=== PATIENT | male | born 1985 | race Caucasian/White ===

== ENCOUNTER 2020-02-13 05:18 | Emergency (ER) | payer BC ==
[2020-02-13 05:22] VITALS: BP 146/81; PULSE 74
[2020-02-13] MEDS ORDERED: Alum Hydrox/Mag Hydrox/Simeth 30 ML, Lidocaine 2% 15 ML PO ONE ×2 (06:02)
--- NOTE | 2020-02-13 06:08 | EDM.PDOC ---
ED HPI GENERAL MEDICAL PROBLEM - General Chief Complaint: Abdominal Pain Stated Complaint: epigastric pain, belching Time Seen by Provider: 02/13/20 05:30 Source of Information: Reports: Patient History Limitations: Reports: No Limitations - History of Present Illness INITIAL COMMENTS - FREE TEXT/NARRATIVE: in with c/o epigastric abd pain with NV, had tacos and chips with salsa as well as a couple mixed drinks last night before going to bed. Denies any ear, nose, throat symptoms denies any unusual neck, back pain or stiffness denies any chest pain or shortness of breath denies any black or tarry stools denies any blood in the vomit no coffee-ground material no fever chills no other symptoms Onset: Today Onset Date: 02/13/20 Onset Time: 03:30 Duration: Hour(s): Location: Reports: Abdomen Quality: Reports: Ache Severity: Moderate Improves with: Reports: None Worsens with: Reports: Eating Associated Symptoms: Reports: Nausea/Vomiting. Denies: Chest Pain, Cough, Fever /Chills, Loss of Appetite, Shortness of Breath, Weakness Treatments TRAFFIC CONTROL SUPERVISOR: Reports: Other (see below) (none) Upper Abdomen Pain Score (Numeric/FACES): 5 - Related Data Allergies Allergy/AdvReac Type Severity Reaction Status Date / Time penicillin Allergy Cannot Verified 07/05/15 19:13 Remember Home Meds: Home Meds Lisinopril/Hydrochlorothiazide [Lisinopril-Hctz 20-12.5 mg Tab] 1 tab PO DAILY 02/13/20 [History] Meloxicam 7.5 mg PO DAILY 02/13/20 [History] Omeprazole Magnesium [Prilosec Otc] 20 mg PO DAILY 30 Days #30 tablet. [Rx] Past Medical History Cardiovascular History: Reports: Hypertension Other Musculoskeletal History: left knee injury Social & Family History - Family History Family Medical History: Noncontributory - Tobacco Use Smoking Status *Q: Never Smoker - Alcohol Use Days Per Week of Alcohol Use: 4 Number of Drinks Per Day: 3 Total Drinks Per Week: 12 - Recreational Drug Use Recreational Drug Use: No ED ROS GENERAL - Review of Systems Review Of Systems: See Below Constitutional: Reports: No Symptoms. Denies: Fever, Chills HEENT: Reports: No Symptoms. Denies: Ear Pain, Nose Pain, Throat Pain Respiratory: Reports: No Symptoms. Denies: Shortness of Breath Cardiovascular: Reports: No Symptoms. Denies: Chest Pain GI/Abdominal: Reports: Abdominal Pain, Nausea, Vomiting. Denies: Constipation, Diarrhea, Distension Musculoskeletal: Reports: No Symptoms. Denies: Neck Pain Skin: Reports: No Symptoms Neurological: Reports: No Symptoms ED EXAM, GI/ABD - Physical Exam Exam: See Below Exam Limited By: No Limitations General Appearance: Alert, WD/WN, No Apparent Distress, Obese Ears: Normal External Exam Nose: Normal Inspection Throat/Mouth: Normal Inspection, Normal Lips, Normal Voice, No Airway Compromise Head: Atraumatic, Normocephalic Neck: Normal Inspection, Supple, Non-Tender, Full Range of Motion Respiratory/Chest: No Respiratory Distress, Lungs Clear, Normal Breath Sounds, Chest Non-Tender Cardiovascular: Normal Peripheral Pulses, Regular Rate, Rhythm, No Murmur GI/Abdominal Exam: Normal Bowel Sounds, Soft, No Distention, Tender (epigastric tenderness) Back Exam: Normal Inspection, Full Range of Motion Extremities: Normal Inspection, Normal Range of Motion, Non-Tender, Normal Capillary Refill Neurological: Alert, Oriented, Normal Cognition, Normal Gait, No Motor/Sensory Deficits Psychiatric: Normal Affect, Normal Mood Skin Exam: Warm, Dry, Intact, Normal Color Course - Vital Signs Text/Narrative:: The patient was evaluated in the emergency department CBC and general chemistries as well as liver function test, amylase, lipase are normal. The patient was given a GI cocktail which completely relieved his symptoms. The patient will be discharged with omeprazole 20 mg once a day and advised no spicy or greasy foods no alcohol until okayed by his physician. Last Recorded V/S: Last Vital Signs Temp 36.7 C 02/13/20 05:19 Pulse 74 02/13/20 05:19 Resp 18 02/13/20 05:19 BP 146/81 H 02/13/20 05:19 Pulse Ox 100 02/13/20 05:19 - Orders/Labs/Meds Labs: Laboratory Tests 02/13/20 02/13/20 Range/Units 05:46 05:46 WBC 5.8 (5.0-10.0) 10^3/uL RBC 5.30 (4.50-6.00) 10^6/uL Hgb 15.2 (14.0-18.0) g/dL Hct 44.1 (40.0-54.0) % MCV 83.2 (82.0-94.0) fL MCH 28.7 (27.0-32.0) pg MCHC 34.5 (33.0-38.0) g/dL RDW Coeff of Leonidas 13.7 (11.0-15.0) % Plt Count 140 L (150-400) 10^3/uL Neut % (Auto) 73.7 (35-85) % Lymph % (Auto) 10.6 (10-55) % [place] % (Auto) 14.4 (0-16) % Eos % (Auto) 1.0 (0-5) % Baso % (Auto) 0.3 (0-3) % Neut # (Auto) 4.30 (1.80-7.00) 10^3/uL Lymph # (Auto) 0.62 L (1.00-4.80) 10^3/uL [place] # (Auto) 0.84 H (0.00-0.80) 10^3/uL Eos # (Auto) 0.06 (0.00-0.45) 10^3/uL Baso # (Auto) 0.02 10^3/uL Sodium 137 (136-145) mEq/L Potassium 4.0 (3.5-5.0) mEq/L Chloride 100 (98-106) mEq/L Carbon Dioxide 26 (21-32) mmol/L BUN 14 (7-18) mg/dL Creatinine 1.0 (0.7-1.3) mg/dL Est Cr Clr Drug Dosing 123.30 mL/min Estimated GFR (MDRD) > 60 (>=60) mL/min Glucose 117 H (75-99) mg/dL Calcium 8.6 (8.4-10.1) mg/dL Total Bilirubin 0.6 (0.0-1.0) mg/dL AST 24 (15-37) U/L ALT 65 (12-78) U/L Alkaline Phosphatase 64 (46-116) U/L C-Reactive Protein 0.4 (0.2-0.8) mg/dL Total Protein 6.9 (6.4-8.2) g/dL Albumin 3.9 (3.4-5.0) g/dL Amylase 61 (25-115) U/L Lipase 121 (73-393) U/L Meds: Medications Discontinued Medications Generic Name Dose Route Start Last Admin Trade Name Lucian PRN Reason Stop Dose Admin Al Hydroxide/Mg Hydroxide 30 0 ml 02/13/20 06:02 02/13/20 06:06 ml/ Lidocaine HCl 15 ml PO 02/13/20 06:03 30 ml ONETIME ONE Administration Departure - Departure Time of Disposition: 06:40 Disposition: Home, Self-Care 01 Condition: Good Clinical Impression: GERD (gastroesophageal reflux disease) - Discharge Information *PRESCRIPTION DRUG MONITORING PROGRAM REVIEWED*: Not Applicable *COPY OF PRESCRIPTION DRUG MONITORING REPORT IN PATIENT TOYR: Not Applicable Prescriptions: Omeprazole Magnesium [Prilosec Otc] 20 mg PO DAILY 30 Days #30 tablet. Instructions: Gastroesophageal Reflux Disease, Adult, [id number] Referrals: Reymundo Holland PA-C [Primary Care Provider] - Forms: ED Department Discharge Additional Instructions: Increase fluids No spicy or greasy foods, no alcohol until okayed by your doctor Sheridan diet Follow-up with your family doctor in 1 to 2 weeks Return to emergency department sooner if worse or any problems Sepsis Event Note - Evaluation Sepsis Screening Result: No Definite Risk - Focused Exam Vital Signs: Vital Signs Temp Pulse Resp BP Pulse Ox 02/13/20 05:19 36.7 C 74 18 146/81 H 100 Date Exam was Performed: 02/13/20 Time Exam was Performed: 06:36 - Problem List & Annotations (1) GERD (gastroesophageal reflux disease) SNOMED Code(s): 381757797 Code(s): K21.9 - GASTRO-ESOPHAGEAL REFLUX DISEASE WITHOUT ESOPHAGITIS Status: Acute Priority: Medium Current Visit: Yes - Problem List Review Problem List Initiated/Reviewed/Updated: Yes - Assessment/Plan Plan: As above
[2020-02-13 06:23] LABS: CHLORIDE,CL 100 mEq/L (98-106); SODIUM,NA 137 mEq/L (136-145)
== END 2020-02-13 06:48 | disposition home or self-care (01) ==
LOC: CC.ED 05:18
DX: K21.9 Gastro-esophageal reflux disease without esophagitis (principal); I10 Essential (primary) hypertension; Z88.0 Allergy status to penicillin; Z79.899 Other long term (current) drug therapy
CPT/HCPCS: 36415; 80053; 82150; 83690; 85025; 86140; 99284; A9270-GY

== ENCOUNTER 2021-08-02 03:28 | Emergency (ER) | payer BC ==
[2021-08-02 03:33] VITALS: BP 141/85; PULSE 88
[2021-08-02] MEDS ORDERED: Alum Hydrox/Mag Hydrox/Simeth 30 ML, Lidocaine 2% 15 ML PO ONE ×2 (03:35)
[2021-08-02] MEDS ORDERED: fentaNYL 50 MCG/ML SDV IVPUSH ONE (04:02)
[2021-08-02 04:06] LABS: CHLORIDE,CL 103 mEq/L (98-106); SODIUM,NA 139 mEq/L (136-145)
[2021-08-02] MEDS ORDERED: Sodium Chloride 0.9% 1,000 ML IV ONE (04:09)
--- NOTE | 2021-08-02 04:16 | EDM.PDOC ---
<AmaliaDaria Savage - Last Filed: 08/02/21 11:15> ED HPI GENERAL MEDICAL PROBLEM - General Chief Complaint: Gastrointestinal Problem Stated Complaint: stomach pain Time Seen by Provider: 08/02/21 03:52 - Related Data Allergies Allergy/AdvReac Type Severity Reaction Status Date / Time penicillin Allergy Cannot Verified 08/02/21 03:33 Remember Home Meds: Home Meds Lisinopril/Hydrochlorothiazide [Lisinopril-Hctz 20-12.5 mg Tab] 1 tab PO DAILY 02/13/20 [History] Meloxicam 7.5 mg PO DAILY PRN 02/13/20 [History] Pantoprazole 20 mg PO DAILY 08/02/21 [History] Course - Re-Assessments/Exams Free Text/Narrative Re-Assessment/Exam: 08/02/21 11:16 test results of the GB US was reviewed with the pt. He will be discharged with follow up appt with Dr. Orozco. Will give [place] for pain as needed. Departure - Departure Time of Disposition: 11:17 Disposition: Home, Self-Care 01 Condition: Good Clinical Impression: Cholelithiasis without obstruction - Discharge Information *PRESCRIPTION DRUG MONITORING PROGRAM REVIEWED*: Not Applicable *COPY OF PRESCRIPTION DRUG MONITORING REPORT IN PATIENT TORY: Not Applicable Instructions: Cholelithiasis, [id number] Referrals: Reymundo Holland PA-C [Primary Care Provider] - Forms: ED Department Discharge Additional Instructions: Appt with Dr. Orozco Aug 15 at 9:45 AM in the clinic watch diet as directed eating low fat [place] 5/325 as needed for pain every 6 hours. call clinic if any new concerns. - Problem List & Annotations (1) Cholelithiasis without obstruction SNOMED Code(s): 77582859 Code(s): K80.20 - CALCULUS OF GALLBLADDER W/O CHOLECYSTITIS W/O OBSTRUCTION Status: Acute Priority: High - Problem List Review Problem List Initiated/Reviewed/Updated: Yes <Shahana Sanabria - Last Filed: 08/03/21 18:45> ED HPI GENERAL MEDICAL PROBLEM - General Source of Information: Reports: Patient History Limitations: Reports: No Limitations - History of Present Illness INITIAL COMMENTS - FREE TEXT/NARRATIVE: Christopher lira a 35 year old male who presents to the ER with complaints of midepigastric/upper quadrant abdominal pain. States started around midnight tonight and has been intense since. Did vomit one time after a coughing spell, did not relieve the pain. Had buffalo chicken pizza earlier this evening. No nausea at present. No fevers. Denies diarrhea or constipation. Had a BM an hour prior to coming here, did not relieve the pain. No flank pain, suprapubic discomfort or burning with urination. No hematuria. States urine was dark but that is not unusual for him. Did try pepto bismal at home without relief. Is on Protonix daily. Had bout of discomfort one year ago, states was more of a burning sensation at that time. Had a GI cocktail with relief. Onset: Today, Sudden Duration: Hour(s):, Constant Location: Reports: Abdomen Quality: Reports: Ache Severity: Severe Improves with: Reports: None Associated Symptoms: Reports: Nausea/Vomiting. Denies: Confusion, Chest Pain, Cough, Fever/Chills, Loss of Appetite, Shortness of Breath Treatments CORE WINDER: Reports: Acetaminophen Abdomen Pain Score (Numeric/FACES): 8 Past Medical History Cardiovascular History: Reports: Hypertension Other Musculoskeletal History: left knee injury Social & Family History - Family History Family Medical History: No Pertinent Family History - Tobacco Use Tobacco Use Status *Q: Never Tobacco User - Caffeine Use Caffeine Use: Reports: Coffee - Recreational Drug Use Recreational Drug Use: No ED ROS GENERAL - Review of Systems Review Of Systems: See Below Constitutional: Denies: Fever, Chills, Malaise, Weakness, Decreased Appetite HEENT: Denies: Ear Pain, Rhinitis, Sinus Problem, Throat Pain Respiratory: Denies: Shortness of Breath, Cough Cardiovascular: Denies: Chest Pain, Edema, Lightheadedness Endocrine: Denies: Fatigue GI/Abdominal: Reports: Abdominal Pain, Nausea, Vomiting. Denies: Black Stool, Bloody Stool, Constipation, Diarrhea : Denies: Dysuria, Flank Pain, Frequency Musculoskeletal: Reports: No Symptoms Skin: Reports: No Symptoms Neurological: Reports: No Symptoms ED EXAM, GI/ABD - Physical Exam Exam: See Below Exam Limited By: No Limitations General Appearance: Alert, WD/WN, Mild Distress Ears: Normal External Exam, Normal TMs Nose: Normal Inspection, Normal Mucosa, No Blood Throat/Mouth: Normal Inspection, Normal Oropharynx Head: Normocephalic Neck: Normal Inspection, Supple, Non-Tender Respiratory/Chest: No Respiratory Distress, Lungs Clear, Normal Breath Sounds Cardiovascular: Regular Rate, Rhythm GI/Abdominal Exam: Normal Bowel Sounds, Soft, Tender (tender to midepigastric area and bilateral upper quadrants) Extremities: Normal Inspection, No Pedal Edema Neurological: Alert, Oriented Skin Exam: Warm, Dry Course - Vital Signs Last Recorded V/S: Last Vital Signs Temp 96.1 F L 08/02/21 03:29 Pulse 88 08/02/21 03:29 Resp 18 08/02/21 03:29 BP 141/85 H 08/02/21 03:29 Pulse Ox 99 08/02/21 03:29 - Orders/Labs/Meds Labs: Laboratory Tests 08/02/21 08/02/21 08/02/21 Range/Units 03:40 03:45 03:45 WBC 6.8 (4.0-11.0) 10^3/uL RBC 5.37 (4.50-6.00) x10^6/uL Hgb 15.5 (14.0-18.0) g/dL Hct 44.6 (42.0-52.0) % MCV 83.1 (83.0-97.0) fL MCH 28.9 (27.0-32.0) pg MCHC 34.8 (32.0-36.0) g/dL RDW Coeff of Leonidas 13.1 (11.0-15.0) % Plt Count 162 (150-400) 10^3/uL Immature Gran % (Auto) 0.1 (0.0-4.9) % Neut % (Auto) 73.3 H (41-71) % Lymph % (Auto) 15.2 L (24-44) % [place] % (Auto) 9.9 (0-10) % Eos % (Auto) 0.9 (0-6) % Baso % (Auto) 0.6 (0-1) % Neut # (Auto) 4.97 (1.80-8.00) x10^3/uL Lymph # (Auto) 1.03 (0.60-5.00) 10^3/uL [place] # (Auto) 0.67 (0.00-1.50) 10^3/uL Eos # (Auto) 0.06 (0.00-1.50) 10^3/uL Baso # (Auto) 0.04 (0.00-0.50) 10^3/uL Immature Gran # (Auto) 0.01 (0.00-0.49) 10^3/uL Sodium 139 (136-145) mEq/L Potassium 3.7 (3.5-5.0) mEq/L Chloride 103 (98-106) mEq/L Carbon Dioxide 25 (21-32) mmol/L BUN 18 (7-18) mg/dL Creatinine 0.9 (0.7-1.3) mg/dL Est Cr Clr Drug Dosing 139.53 mL/min Estimated GFR (MDRD) > 60 (>=60) mL/min Glucose 140 H D (75-99) mg/dL Calcium 9.1 (8.4-10.1) mg/dL Total Bilirubin 0.6 (0.0-1.0) mg/dL AST 25 (15-37) U/L ALT 75 (12-78) U/L Alkaline Phosphatase 75 (46-116) U/L C-Reactive Protein < 0.2 L (0.2-0.8) mg/dL Total Protein 7.4 (6.4-8.2) g/dL Albumin 4.3 (3.4-5.0) g/dL Amylase 69 (25-115) U/L Lipase 143 (73-393) U/L Urine Color Ruby (YELLOW) Urine Appearance Clear (CLEAR) Urine pH 5.5 (4.5-8.0) Ur Specific [place] >= 1.030 H (1.003-1.020) Urine Protein Negative (NEGATIVE) mg/dL Urine Glucose (UA) Negative (NEGATIVE) mg/dL Urine Ketones Negative (NEGATIVE) mg/dL Urine Occult Blood Moderate H (NEGATIVE) Urine Nitrite Negative (NEGATIVE) Urine Bilirubin Negative (NEGATIVE) Urine Urobilinogen 0.2 (0.2-1.0) EU/dL Ur Leukocyte Esterase Negative (NEGATIVE) Urine RBC 0-5 (0-5) /HPF Urine WBC 0-5 (0-5) /HPF Calcium Oxalate Crystal Moderate H (NOT SEEN) /HPF Urine Mucus Few H (NOT SEEN) /HPF Meds: Medications Discontinued Medications Generic Name Dose Route Start Last Admin Trade Name Freq PRN Reason Stop Dose Admin Hydrocodone Bitart/Acetaminophen 1 tab 08/02/21 09:27 08/02/21 09:30 Acetaminophen/Hydrocodone 325-5 Mg Tab PO 08/02/21 09:28 1 tab ONETIME ONE Administration Al Hydroxide/Mg Hydroxide 30 0 ml 08/02/21 03:35 08/02/21 03:37 ml/ Lidocaine HCl 15 ml PO 08/02/21 03:36 45 ml ONETIME ONE Administration Fentanyl 25 mcg 08/02/21 04:02 08/02/21 04:05 Fentanyl 50 Mcg/Ml Sdv IVPUSH 08/02/21 04:03 25 mcg ONETIME ONE Administration Fentanyl 25 - 50 mcg 08/02/21 04:22 Fentanyl 50 Mcg/Ml Sdv IVPUSH Q2H PRN Pain Sodium Chloride 1,000 mls @ 999 mls/hr 08/02/21 04:09 08/02/21 04:11 Normal Saline IV 08/02/21 05:09 999 mls/hr .BOLUS ONE Administration - Re-Assessments/Exams Free Text/Narrative Re-Assessment/Exam: 08/02/21 04:20 patient had GI cocktail with no relief. labs all essentially unremarkable. Does have moderate amount of blood noted in urine, had blood in urine back in 2014 as well, 0-5 RBCs. No flank pain or groin pain to suggest kidney stone. Fentanyl given which did help some with the pain. Specific gravity greater than 1.030. Will start IV fluids. Obtain gallbladder US in am, pain control until accomplished 1010-Waiting on results of ultrasound. Patient states pain much improved. Tech did note gallstones. Patient aware. Want to ensure no signs of cholecystitis. Report given to Daria Holland. Sepsis Event Note (ED) - Evaluation Sepsis Screening Result: No Definite Risk
[2021-08-02] MEDS ORDERED: fentaNYL 50 MCG/ML SDV IVPUSH PRN (04:22)
[2021-08-02] MEDS ORDERED: Acetaminophen/HYDROcodone 325-5 MG Tab PO ONE (09:27)
== END 2021-08-02 11:20 | disposition home or self-care (01) ==
LOC: CC.ED 03:28
DX: K80.20 Calculus of gallbladder without cholecystitis without obstruction (principal); Z88.0 Allergy status to penicillin; Z79.899 Other long term (current) drug therapy
CPT/HCPCS: 36415; 76705; 80053; 81001; 82150; 83690; 85025; 86140; 96374; 99284; A9270; J3010; J7030

== ENCOUNTER → 2021-08-16 | Day surgery (SDC) | payer BC ==
[~2021-08-16] MED LIST: Dexamethasone 4 MG/ML SDV ONE; Ketorolac 30 MG/ML SDV ONE; Lactated Ringers 1,000 ML IV SCH; Midazolam 1 MG/ML 2 ML SDV ONE; Morphine 4 MG/ML VIAL IV PRN; Neostigmine Methylsulfate 10 MG/10 ML MDV ONE; Ondansetron 4 MG/2 ML SDV IVPUSH PRN; Propofol 200 MG/20 ML SDV ONE; Rocuronium 50 MG/5 ML Vial ONE; Sodium Chloride 0.9% 10 ML Syringe FLUSH PRN; ceFAZolin 1 GM Vial IVPUSH ONE; fentaNYL 100 MCG/2 ML SDV ONE
[2021-08-16] MEDS: Acetaminophen/oxyCODONE 325-5 MG Tab PO PRN ×2 (15:45→21:03)
--- NOTE | 2021-08-16 19:13 | OR ---
DATE OF OPERATION: 08/16/2021 PREOPERATIVE DIAGNOSIS: CHRONIC CHOLECYSTITIS AND CHOLELITHIASIS. POSTOPERATIVE DIAGNOSIS: CHRONIC CHOLECYSTITIS AND CHOLELITHIASIS. SURGEON: Blade Orozco MD PROCEDURE: LAPAROSCOPIC CHOLECYSTECTOMY. ANESTHESIA: General. ESTIMATED BLOOD LOSS: Minimum. SPECIMEN: Gallbladder and stones. FINDINGS: Thick-walled gallbladder with 4 medium to large stones within the gallbladder. INDICATIONS: This 35-year-old male has had several attacks of right upper quadrant abdominal pain. An ultrasound shows multiple stones within the gallbladder. DESCRIPTION OF PROCEDURE: After adequate preparation, an infraumbilical incision was made. A Veress needle placed intra-abdominally for insufflation. This was then exchanged for a 5 mm trocar and laparoscoped. Three other trocars were placed underneath the right upper quadrant ribcage under direct vision. This patient is morbidly obese and I needed to have an extra trocar above the belly button midway between the umbilicus and the xiphoid process, and I moved the camera up to that position. That helped me look over the transverse colon and to see Saeid's pouch. The fatty growth around the cystic triangle structures was dissected free to expose the duct and artery separately. These were then triply clipped and divided. The gallbladder was taken off the liver bed using cautery and blunt dissection. There was some spillage of bile due to the grasper perforating the fundus of the gallbladder. This was irrigated with a liter of saline and suctioned clear. The gallbladder after it was removed from the liver bed was placed in a sterile retrieval bag and brought out through the epigastric trocar site. The abdomen was desufflated and the skin closed with Vicryl. The gallbladder was opened on the back table and showed again thick-walled gallbladder, dark blackish appearing bile and 4 medium 4 to 5 cm stones. BPB/MODL /[id number]
--- NOTE | 2021-08-17 07:28 | PCM.SN.2 ---
- Free Text/Narrative Note: Stable POD#1. Pain controlled. PO liquids tolerated. Wounds clean and dry. Can discharge today. FU my clinic 2 weeks if needed. Percocet #20 given for pain. No restrictions. Resume regular diet. Time Documentation
[2021-08-17 08:22] VITALS: BP 113/68; PULSE 77
== END ==
LOC: CC.SDS 10:21
PROVIDERS: ATTEND Surgery
DX: K80.10 Calculus of gallbladder with chronic cholecystitis without obstruction (principal); I10 Essential (primary) hypertension; K21.9 Gastro-esophageal reflux disease without esophagitis; E66.01 Morbid (severe) obesity due to excess calories; Z88.0 Allergy status to penicillin; Z79.899 Other long term (current) drug therapy; Z98.890 Other specified postprocedural states; Z87.891 Personal history of nicotine dependence; Z68.37 Body mass index [BMI] 37.0-37.9, adult
CPT/HCPCS: 47562; A9270; J0690; J1100; J1885; J2250; J2704; J2710; J3010; J7030; J7120